=== PATIENT | female | born 1995 | race Caucasian/White ===

== ENCOUNTER → 2021-07-01 | Outpatient (CLI) | payer OTHER ==
[2021-07-01 17:42] LABS: HEMOGLOBIN 10.9 gm/dl (12.3-15.3); RED BLOOD COUNT 4.23 M/UL (4.00-5.10); WHITE BLOOD COUNT 5.4 K/UL (4.5-11.0)
[2021-07-01 18:03] LABS: BUN/CREATININE RATIO 15 (0-10)
[2021-07-03 07:13] LABS: FSH 2.3 mIU/mL (.); LUTEINIZING HORMONE(LH) 10.5 mIU/mL (.); PROLACTIN 12.9 ng/mL (4.8-23.3); THYROXINE (T4) 8.4 ug/dL (4.5-12.0); TRIIODOTHYRONINE (T3) 130 ng/dL (71-180)
[2021-07-07 15:13] LABS: TESTOSTERONE, SERUM 31 ng/dL (13-71)
== END ==
LOC: LAB 15:59
PROVIDERS: Nurse Practitioner Family
DX: N94.6 Dysmenorrhea, unspecified (principal); L65.9 Nonscarring hair loss, unspecified; R53.83 Other fatigue; E55.9 Vitamin D deficiency, unspecified
CPT/HCPCS: 36415; 80053; 80061; 82627; 82670; 82728; 82746; 83001; 83002; 83540; 83550; 84144; 84146; 84402; 84403; 84436; 84443; 84480; 85025